=== PATIENT | female | born 1965 | race African-American/Black ===

== ENCOUNTER 2017-07-12 09:06 | Inpatient (IN) | payer OTHER ==
[~2017-07-12] VITALS: Ht 157.5 cm; Wt 131.1 kg
--- NOTE | ~2017-07-12 | HC ---
[facility] [place] [address] CONSULTATION Name: ANGELES VELAZQUEZ Room #: 446-P ADM IN M.R.#: [id number] Admission: 07/12/17 Attend Phys: Benedict Walker MD Discharge: Date of : 61 Report #: [id number] THIS REPORT FOR: //name// CC: Benedict Walker [facility] physician/PCP DATE OF SERVICE: 07/12/2017 REASON FOR CONSULTATION: The patient is a 51-year-old woman with history of gastric sleeve surgery with persistent nausea and vomiting. HISTORY OF PRESENT ILLNESS: This 51-year-old woman has a past medical history of high blood pressure and diabetes. She also has had morbid obesity. She had a lap band placed in 2014. Initial weight was 397 and dropped to 209. However, because of continued weight loss, the lap band was removed and she gained weight back to 312. She also has significant knee problems and states that she needs to have knee replacements. However, they will not do the surgery until she loses weight. In May, she had gastric sleeve surgery at [facility] in [place]. Since that time, she has had problems eating. She reports many times she will have vomiting after eating even liquids. Episodes of nausea and vomiting are sporadic, but generally she vomits nearly on a daily basis. She lost 35 pounds since May. She presented to the Emergency Room at [facility] and was found to be significantly hypokalemic and admitted for further evaluation and treatment. She also reports she has had longstanding reflux disease and had reflux symptoms prior to her bariatric surgeries. She had taken Nexium in the past, but her Medicaid would not cover the Nexium, so recently she has been using ranitidine. She did not have problems with dysphagia. She has not had hematemesis. Also, she reports that nonsteroidals have never helped her joint complaints, so she does not use those medications. Rather, she takes Percocet and generally takes 3 or 4 per day. She also has had problems with constipation and reports she will go days without a stool and then she may have some liquidy stools. She reports she had a colonoscopy at [facility] about a year ago for screening purposes and reports that study was negative. Also, she has not had any rectal bleeding. PAST MEDICAL HISTORY: She has had asthma, diabetes, high blood pressure, degenerative joint disease, COPD. PAST SURGICAL HISTORY: Previous lap band, followed by sleeve surgery in 05/2017; previous hysterectomy; cholecystectomy and appendectomy. She also had a lipoma removed. [address] [address] CONSULTATION Name: ANGELES VELAZQUEZ Room #: 446-P [facility] IN M.R.#: [id number] Admission: 07/12/17 Attend Phys: Benedict Walker MD Discharge: Date of : 61 Report #: [id number] ALLERGIES: ASPIRIN, IBUPROFEN, LISINOPRIL and pork. MEDICATIONS: Usual home medicines, albuterol, metformin, hydrochlorothiazide, Percocet and Lasix. FAMILY HISTORY: Notable for high blood pressure. Grandmother of colon cancer. Grandfather of lung cancer. SOCIAL HISTORY: Lives with her son. 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 She denies use of alcohol. She had smoked in the past, but has quit. REVIEW OF SYSTEMS: GENERAL: A 35-pound weight loss following surgery. No fevers, chills. CENTRAL NERVOUS SYSTEM: No focal weakness, numbness, loss of consciousness, seizures or strokes. ENT: No change in vision or hearing or sores in the mouth. PULMONARY: Chronic obstructive pulmonary disease, smoked in the past, but not recently. No cough or pneumonia. CARDIOVASCULAR: No chest pain, chest tightness or palpitations. GASTROINTESTINAL: Nausea and vomiting, constipation. Negative colonoscopy a year ago. GENITOURINARY: Recent urinary tract infection. GYNECOLOGIC: Previous hysterectomy. No breast problems. MUSCULOSKELETAL: Degenerative joint disease primarily knees. ENDOCRINE: She has diabetes, not aware of thyroid problems. SKIN: Without rashes. PSYCHIATRIC: No depression, anxiety or bipolar illness. HEMATOLOGIC: No bleeding, bruising or malignancies. PHYSICAL EXAMINATION: GENERAL: The patient is a morbidly obese woman in no acute distress. She frequently belches. VITAL SIGNS: Blood pressure 155/101, pulse of 82. HEENT: Anicteric. Pupils equal and round. Oropharynx clear. NECK: Supple. CHEST: Clear. HEART: Regular rate and rhythm, normal S1, S2. ABDOMEN: Morbidly obese. I cannot appreciate any organomegaly or masses due to the size of the abdomen. Her abdomen is soft and nontender. She has normal bowel sounds. RECTAL: Not done. EXTREMITIES: Without cyanosis, clubbing, edema. NEUROLOGIC: Oriented to person, place and time. Moves all 4 extremities well. LABORATORY DATA: White count of 4.8, hemoglobin 11.8, platelet count of [facility] [address] [place] [address] CONSULTATION Name: ANGELES VELAZQUEZ Room #: 446-P [facility] IN M.R.#: [id number] Admission: 07/12/17 Attend Phys: Benedict Walker MD Discharge: Date of : 61 Report #: [id number] 225,000. Sodium 145, potassium 2.9, chloride 107, carbon dioxide 31, BUN 11, creatinine 0.6. Liver function studies normal. Troponin normal. BNP of 84. Albumin slightly decreased at 2.9. Lipase is 75. Portable chest x-ray, no acute changes. ASSESSMENT: 1. Persistent nausea and vomiting following gastric sleeve surgery. 2. Daily use of narcotics for degenerative joint disease. 3. Morbid obesity with recent gastric sleeve surgery. 4. Diabetes, non-insulin dependent. 5. Asthma. 6. Chronic obstructive pulmonary disease. 7. Gastroesophageal reflux disease, chronic. 8. Hypokalemia. PLAN: 1. Recommend discontinuing narcotics, which are likely contributing to her symptoms. 2. Upper endoscopy planned tomorrow for further evaluation of her symptoms. 3. Treatment for gastroesophageal reflux disease, which may help. 4. If symptoms persist, may benefit from agent such as a transdermal scopolamine patch. <ELECTRONICALLY SIGNED> By: Yannick Perez MD 07/13/17 1631 1254 0032 Yannick Perez MD /nt
--- NOTE | ~2017-07-12 | EKG ---
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
--- NOTE | ~2017-07-12 | H ---
[facility] [place] [address] HISTORY AND PHYSICAL Name: ANGELES VELAZQUEZ Room #: 446-P ADM IN M.R.#: [id number] Admission: 07/12/17 Attend Phys: Benedict Walker MD Discharge: Date of : 61 Report #: [id number] THIS REPORT FOR: //name// CC: Benedict Walker [facility] physician/PCP DATE OF SERVICE: 07/12/2017 REASON FOR ADMISSION: Persistent nausea and vomiting. HISTORY OF PRESENT ILLNESS: A 51-year-old with past medical history of hypertension, borderline diabetes mellitus. The patient had a laparoscopic banding back in 2014. This had resulted in significant weight loss after which the patient had the band removed. She continues to have issues with her knee degenerative joint disease and for her to go through the knee surgery, they told her that she has to have a gastric sleeve surgery, which was done in 05/2017 in [place] by physician shai Sanchez. She followed the post-sleeve surgery instructions including liquid diet and advancement accordingly. However, she continued to have major issues with nausea, vomiting, issues with diarrhea and not being able to take her medications. She is supposed to be taking hydrochlorothiazide, metformin; however, because of her persistent nausea and vomiting, she was unable to do so. Due to the lack of good p.o. intake, she developed hypokalemia with no symptoms. She presented for further evaluation and management and was found to have a potassium of 2.9. She denies any chest pain. No fever or chills. She was told that she might be having urinary tract infections when she visited with [facility]'s facility ER, was given a script; however, this was not filled. She used to follow with a primary care physician in [facility]. She stopped seeing them and recently had been seeing somebody at [facility]; however, due to the noncompliance, she has not seen anyone lately. She denies any abdominal pain. She reported to no syncope. No dizziness. No lethargy. ALLERGIES: ASPIRIN, IBUPROFEN, LISINOPRIL. PAST MEDICAL AND SURGICAL HISTORY: 1. Asthma. 2. Diabetes mellitus. 3. Hypertension. 4. Status post hysterectomy. 5. Gastric sleeve surgery in 05/2017. 6. Gastric banding surgery with removal in 2014. 7. Hysterectomy. 8. Gallbladder surgery. 9. Appendectomy MEDICATIONS: [address] [address] HISTORY AND PHYSICAL Name: ANGELES VELAZQUEZ Room #: 446-P [facility] IN .R.#: [id number] Admission: 07/12/17 Attend Phys: Benedict Walker MD Discharge: Date of : 61 Report #: [id number] 1. Albuterol. 2. Metformin. 3. Hydrochlorothiazide; however, she has not been taking any. SOCIAL HISTORY: She lives with her son. 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 No drug or alcohol abuse. FAMILY HISTORY: Significant for hypertension. REVIEW OF SYSTEMS: GENERAL: Occasional weakness. CARDIOVASCULAR: Occasional chest pains, nonspecific. PULMONARY: No cough or hemoptysis. No wheezes. GASTROINTESTINAL: As per the history of present illness. GENITOURINARY: Dark urine, but no burning or stinging. MUSCULOSKELETAL: Bilateral knees pain. SKIN: No rash or ulcerations. NEUROLOGIC: Weakness. PHYSICAL EXAMINATION: GENERAL: Alert, oriented. VITAL SIGNS: Blood pressure is mildly elevated at 160/100. HEAD AND NECK: No jugular venous distention. CHEST: Clear to auscultation bilaterally. CARDIOVASCULAR: Regular with no rub. ABDOMEN: Soft, nontender with scars from her previous surgeries. LOWER EXTREMITIES: No edema. LABORATORY VALUES: Reviewed. Albumin low at 2.9. Potassium low at 2.9. UA was just trace protein and no ketones. Hemoglobin 11.8. Mildly elevated eosinophils noted on her CBC. Chest x-ray and KUB with no acute abnormality. ASSESSMENT, IMPRESSION AND PLAN: 1. Hypokalemia. 2. Persistent nausea and vomiting post-sleeve surgery. 3. Hypertension. 4. Diabetes mellitus. 5. Lack of compliance. 6. Admission. 7. Electrolyte replacement protocol. 8. Gastrointestinal evaluation. 9. P.r.n. nausea and vomiting medications. 10. Discontinue IV fluid. 11. Once able to take p.o., would resume her blood pressure and blood sugar medications. 12. I see no reason for any CT scanning at this point; however, we will take [address] [address] HISTORY AND PHYSICAL Name: ANGELES VELAZQUEZ Room #: 446-P [facility] IN Chasidy.Ernestina#: [id number] Admission: 07/12/17 Attend Phys: Benedict Walker MD Discharge: Date of : 61 Report #: [id number] that as our account. 13. I will decide about obtaining surgical input regarding her gastric sleeve surgery if needed. <ELECTRONICALLY SIGNED> By: Benedict Walker MD 07/13/17 0850 1105 1131 Benedict Walker MD /nt
--- NOTE | ~2017-07-12 | P ---
[facility] [place] [address] PROCEDURE REPORT Name: ANGELES VELAZQUEZ Room #: 446-P ADM IN M.R.#: [id number] Admission: 07/12/17 Attend Phys: Benedict Walker MD Discharge: Date of : 61 Report #: [id number] THIS REPORT FOR: //name// CC: Benedict Walker [facility] physician/PCP BRIEF HISTORY: The patient is a 51-year-old woman who underwent recent gastric sleeve surgery with persistent nausea and vomiting. She also has a history of diabetes. She does use some narcotics. PREOPERATIVE DIAGNOSES: Nausea and vomiting following gastric sleeve. POSTOPERATIVE DIAGNOSES: 1. Moderate erosive gastritis, distal esophagus. 2. Small hiatus hernia. 3. Diffuse gastritis. 4. Surgical changes in stomach consistent with a gastric sleeve surgery. MEDICATIONS: Deep sedation with propofol per anesthesia. SPECIMEN: Biopsies of gastritis. ESTIMATED BLOOD LOSS: 3 mL. PROCEDURE: EGD with biopsy. FINDINGS: Prior to propofol sedation, the procedure of upper endoscopy discussed with the patient as well as potential risks, benefits, and complications. She indicates she understands and desires to proceed. With the patient in left lateral decubitus position, the Vinopolisi video endoscope was inserted in the cervical esophagus under direct vision without difficulty. Examination of this organ through its entire length revealed normal mucosa in the distal esophagus. on the distal esophagus, she was found to have evidence of moderately severe erosive esophagitis likely related to her vomiting. No strictures or masses were seen. The scope was advanced and a small to moderate sliding type hiatus hernia was seen. The mucosa in the hernia was inspected and noted to be unremarkable. The scope was advanced into the stomach. There was a bulbous area of the fundus of the stomach. The mucosa was normal. On the distal aspect of this area, there was a narrowing from the gastric sleeve surgery. It narrowed down significantly, but the scope did pass easily through the gastric sleeve portion of the stomach. It is also noted that there was an angulation in the course of the gastric sleeve segment. The scope was then advanced into the distal stomach, which revealed mild erythema, but no ulcers or erosions. Upon retroflexion, the scope could be seen coming through the gastric sleeve section with healing incisional line. The gastric sleeve was fairly tight around the scope, but again the scope did pass. The pylorus was [facility] [address] [place] [address] PROCEDURE REPORT Name: ANGELES VELAZQUEZ Room #: 446-P [facility] IN M.R.#: [id number] Admission: 07/12/17 Attend Phys: Benedict Walker MD Discharge: Date of : 61 Report #: [id number] unremarkable. The duodenal bulb was noted to be unremarkable. The postbulbar duodenal sweep was inspected and noted to be unremarkable. At that point, the scope was slowly withdrawn and careful circumferential views were obtained. Biopsies were obtained of the gastritis. The patient tolerated the procedure well. DISPOSITION: The patient with recent gastric sleeve surgery with persistent nausea and vomiting. The segment of the body of the stomach where the gastric sleeve was completed is narrowed as expected. However, the scope does pass easily through the area. I do not see any ulcers or obstructing lesions. She does have esophagitis, likely secondary to vomiting. At this point in time, we will place her on metoclopramide on a short-term basis. Also, switch her from a H2 yadira to pantoprazole due to her esophagitis. Ideally, discontinuation of narcotics would be helpful with regards to her symptoms. Also suggest multiple small meals a day. If symptoms persist, barium upper GI series may be helpful. Surgical consultation may be helpful as well if symptoms persist. <ELECTRONICALLY SIGNED> By: Yannick Perez MD 07/13/17 1631 0957 1142 Yannick Perez MD /nt
--- NOTE | ~2017-07-12 | S ---
[facility] [place] [address] SURGICAL PATH RPT PROCEDURE Name: PILI VARGAS Room #: 446-P ADM IN M.R.#: [id number] Admission: 07/12/17 Date of : 61 Discharge: Report #: [id number] Path Case #: [id number] PATHOLOGY REPORT COLLECTION DATE: 07/13/2017 RECEIVED DATE: 07/13/2017 SUBMITTING PHYS: Dr. Yannick Perez OTHER PHYS: Dr. Benedict Walker SPECIMEN(S) RECEIVED: A.Bx of antrum and gastric body * * * * * * * * * * * * FINAL DIAGNOSIS: Gastric mucosa, antrum and gastric body rule out H. pylori, endoscopic biopsy: - Mild reactive gastropathy. - Negative for intestinal metaplasia or atrophy. - Negative for Helicobacter pylori. COMMENT: Well-controlled Helicobacter pylori immunohistochemical stain performed on block A1-negative. (IUV:mgr; 07/14/2017) PATHOLOGIST: Cathie Moreau M.D. REPORT ELECTRONICALLY SIGNED BY: Cathie Moreau M.D. DATE/TIME: 07/14/2017 17:23 * * * * * * * * * * * * GROSS PATHOLOGY: Received in formalin labeled "Pili Vargas, BX of antrum and gastric body, rule out H. pylori ," are 4 segments of gross soft tissue measuring 0.9 x 0.6 x 0.3 cm in aggregate dimensions and ranging from 0.3 to 0.4 cm in maximum dimension. The specimen is submitted entirely in cassette A1. (TSD; 07/13/2017) CLINICAL HISTORY: Pre-OP DX: Vomiting Post-OP DX: Gastritis, hiatal hernia, surgical change in gastric sleeve INITIAL CPT CODE(S): A; 82939, [address] [facility] [place] [address] SURGICAL PATH RPT PROCEDURE Name: MARCUSPILI Room #: 446-P ADM IN M.R.#: [id number] Admission: 07/12/17 Date of : 61 Discharge: Report #: [id number] Path Case #: [id number] Professional services performed by [facility] [address], [place] [address] Technical services performed by [facility] at [address] [place] [address], [place] [address]. [facility] [address] [place] [address] PHONE: [phone] DIRECTOR: Segundo Otero M.D. * * * END OF REPORT * * *
[2017-07-12 09:06] VITALS: BP 149/105
[~2017-07-12 09:06] MED LIST: PERCOCET 10-321 EACH PO; TRAMADOL 50 MG50 MG PO; VENTOLIN HFA 1818 GM INH
[2017-07-12 09:33] LABS: ABSOLUTE NEUTROPHILS 2.4 thou/uL (1.4-8.2); BASOPHILS 0.7 % (0.0-2.0); EOSINOPHILS 3.7 % (0.0-3.0); HEMATOCRIT 36.3 % (37.0-47.0); HEMOGLOBIN 11.8 gm/dL (12.0-15.0); MCH 27.1 pg (26.0-34.0); MCHC 32.6 g/dL (28.0-37.0); MCV 83.4 fL (80.0-100.0); PLATELET COUNT 225 thou/uL (150-400); POLYS 50.6 % (36.0-66.0); RBC 4.36 mil/uL (4.20-5.00); RDW 15.1 % (10.5-14.5); WBC 4.8 thou/uL (4.0-11.0)
[2017-07-12 09:43] LABS: ANION GAP 7 mmol/L (7-16); BUN 11 mg/dL (7-18); CALCIUM 8.7 mg/dL (8.5-10.1); CHLORIDE 107 mmol/L (98-107); CO2 31 mmol/L (21-32); CREATININE 0.6 mg/dL (0.6-1.0); GLUCOSE 99 mg/dL (74-106); SODIUM 145 mmol/L (136-145)
[2017-07-12 09:48] LABS: POTASSIUM 2.9 mmol/L (3.5-5.1)
[2017-07-12 09:52] LABS: ALBUMIN 2.9 g/dL (3.4-5.0); LIPASE 75 U/L (73-393); SGOT 22 U/L (15-37); SGPT 34 U/L (30-65); TOTAL BILIRUBIN 0.6 mg/dL (<0.1-1.0); TOTAL PROTEIN 6.4 g/dL (6.4-8.2); TROPONIN-I < 0.04 ng/mL (<0.06)
[2017-07-12 10:15] LABS: URINE BLOOD NEGATIVE (Negative); URINE CLARITY CLEAR; URINE COLOR YELLOW; URINE GLUCOSE-RANDOM* NEGATIVE (Negative); URINE KETONES NEGATIVE (Negative); URINE LEUKOCYTES NEGATIVE (Negative); URINE NITRITE NEGATIVE (Negative); URINE PROTEIN (DIPSTICK) TRACE (Negative); URINE SPECIFIC GRAVITY 1.025 (1.005-1.035)
[2017-07-12 10:21] LABS: ICTOTEST (BILI CONFIRMATORY) Negative (Negative); URINE BILIRUBIN NEGATIVE (Negative)
[2017-07-12 11:19] VITALS: BP 155/101
[2017-07-12 13:00] VITALS: BP 155/99
[2017-07-12 16:45] VITALS: BP 151/100
[2017-07-12 21:35] VITALS: BP 143/80
[2017-07-13 05:37] VITALS: BP 129/86
[2017-07-13 06:09] LABS: HEMATOCRIT 33.5 % (37.0-47.0); MCH 27.4 pg (26.0-34.0); MCHC 32.8 g/dL (28.0-37.0); MCV 83.4 fL (80.0-100.0); RBC 4.01 mil/uL (4.20-5.00); WBC 4.4 thou/uL (4.0-11.0)
[2017-07-13 06:26] LABS: ALBUMIN 2.5 g/dL (3.4-5.0); CALCIUM 8.1 mg/dL (8.5-10.1); CREATININE 0.6 mg/dL (0.6-1.0); MAGNESIUM 1.6 mg/dL (1.8-2.4); TOTAL BILIRUBIN 0.5 mg/dL (<0.1-1.0); TOTAL PROTEIN 5.8 g/dL (6.4-8.2)
[2017-07-13 08:17] VITALS: BP 141/95
[2017-07-13 14:54] LABS: URINE BLOOD NEGATIVE (Negative); URINE COLOR YELLOW; URINE GLUCOSE-RANDOM* NEGATIVE (Negative); URINE KETONES NEGATIVE (Negative); URINE LEUKOCYTES-REFLEX NEGATIVE (Negative); URINE NITRITE-REFLEX NEGATIVE (Negative); URINE PROTEIN (DIPSTICK) NEGATIVE (Negative); URINE SPECIFIC GRAVITY 1.025 (1.005-1.035)
[2017-07-13 14:55] LABS: URINE BILIRUBIN NEGATIVE (Negative); URINE CLARITY HAZY
[2017-07-13] MEDS ORDERED: LASIX 20 MG TAB20 MG PO (15:04)
[2017-07-13] MEDS ORDERED: ZANTAC 150MG T150 MG PO (15:04)
[2017-07-13 16:16] LABS: MAGNESIUM 2.3 mg/dL (1.8-2.4); POTASSIUM 3.5 mmol/L (3.5-5.1)
[2017-07-13 16:20] VITALS: BP 148/98
[2017-07-13 19:47] VITALS: BP 147/100
[2017-07-14 03:56] VITALS: BP 128/80
[2017-07-14 05:36] LABS: HEMATOCRIT 33.8 % (37.0-47.0); HEMOGLOBIN 11.2 gm/dL (12.0-15.0); MCH 27.8 pg (26.0-34.0); MCV 84.1 fL (80.0-100.0); RBC 4.02 mil/uL (4.20-5.00); WBC 4.2 thou/uL (4.0-11.0)
[2017-07-14 05:49] LABS: CALCIUM 8.1 mg/dL (8.5-10.1); CREATININE 0.6 mg/dL (0.6-1.0); MAGNESIUM 1.6 mg/dL (1.8-2.4); POTASSIUM 3.2 mmol/L (3.5-5.1)
[2017-07-14 08:00] VITALS: BP 139/92
[2017-07-14 16:00] VITALS: BP 125/84
[2017-07-14 20:33] LABS: MAGNESIUM 1.9 mg/dL (1.8-2.4); POTASSIUM 3.6 mmol/L (3.5-5.1)
[2017-07-14 21:08] VITALS: BP 138/92
[2017-07-15 04:51] VITALS: BP 144/87
[2017-07-15 05:30] LABS: ABSOLUTE NEUTROPHILS 2.6 thou/uL (1.4-8.2); BASOPHILS 0.4 % (0.0-2.0); EOSINOPHILS 2.8 % (0.0-3.0); HEMATOCRIT 34.6 % (37.0-47.0); HEMOGLOBIN 11.6 gm/dL (12.0-15.0); LYMPHOCYTES 33.4 % (24.0-44.0); MCH 27.7 pg (26.0-34.0); MCHC 33.5 g/dL (28.0-37.0); MCV 82.8 fL (80.0-100.0); MONOCYTES 8.9 % (1.0-8.0); PLATELET COUNT 225 thou/uL (150-400); POLYS 54.5 % (36.0-66.0); RBC 4.18 mil/uL (4.20-5.00); WBC 4.8 thou/uL (4.0-11.0)
[2017-07-15 05:53] LABS: CALCIUM 8.5 mg/dL (8.5-10.1); CREATININE 0.8 mg/dL (0.6-1.0); POTASSIUM 3.4 mmol/L (3.5-5.1)
[2017-07-15 08:00] VITALS: BP 120/80
[2017-07-15] MEDS ORDERED: PERCOCET 10-321 EACH PO (08:16)
[2017-07-15] MEDS ORDERED: POTASSIUM20 PO (08:17)
[2017-07-15] MEDS ORDERED: ZOFRAN ODT4 M1 PO (08:20)
[2017-07-15] MEDS ORDERED: PROTONIX 20 MG20 M1 PO (08:20)
[2017-07-15 10:49] VITALS: BP 120/80
[2018-01-04] MEDS ORDERED: ZANTAC 150MG T150 MG PO (06:03)
[2018-01-04] MEDS ORDERED: PERCOCET 10-321 EACH PO (08:11)
== END 2017-07-15 11:20 | disposition home or self-care (01) | DRG 381 ==
LOC: ER 09:06 → EROBS 10:36 → 4S 11:20 → ENTRNSPT 07-15 10:58 → EDTRNSPTSTS 07-15 11:00 → 4S 07-15 11:20
PROVIDERS: Family Medicine; Hospitalist; Internal Medicine; Nurse Practitioner Family; Specialist
PROC: 0DB68ZX Excision of Stomach, Via Natural or Artificial Opening Endoscopic, Diagnostic (ICD-10-PCS; principal; 2017-07-13)
DX: K22.10 Ulcer of esophagus without bleeding (principal); Z68.43 Body mass index [BMI] 50.0-59.9, adult; K29.70 Gastritis, unspecified, without bleeding; Z90.710 Acquired absence of both cervix and uterus; I10 Essential (primary) hypertension; E11.9 Type 2 diabetes mellitus without complications; J45.909 Unspecified asthma, uncomplicated; I16.0 Hypertensive urgency; E87.6 Hypokalemia; M19.90 Unspecified osteoarthritis, unspecified site; J44.9 Chronic obstructive pulmonary disease, unspecified; E66.01 Morbid (severe) obesity due to excess calories; K21.9 Gastro-esophageal reflux disease without esophagitis; K44.9 Diaphragmatic hernia without obstruction or gangrene; E83.42 Hypomagnesemia; K59.00 Constipation, unspecified; Z79.899 Other long term (current) drug therapy; Z98.84 Bariatric surgery status; Z88.6 Allergy status to analgesic agent; Z90.49 Acquired absence of other specified parts of digestive tract; Z88.8 Allergy status to other drugs, medicaments and biological substances; Z82.49 Family history of ischemic heart disease and other diseases of the circulatory system; Z83.3 Family history of diabetes mellitus
CPT/HCPCS: 10195; 62110; 62900; 70005

== ENCOUNTER 2017-07-20 15:42 | Emergency (ER) | payer OTHER ==
[~2017-07-20] VITALS: Ht 157.5 cm; Wt 122.5 kg
[~2017-07-20 15:42] MED LIST changes: +LASIX 20 MG TAB20 MG PO; +POTASSIUM20 PO; +PROTONIX 20 MG20 M1 PO; +ZANTAC 150MG T150 MG PO; +ZOFRAN ODT4 M1 PO
[2017-07-20 16:06] LABS: ABSOLUTE NEUTROPHILS 3.5 thou/uL (1.4-8.2); BASOPHILS 1.1 % (0.0-2.0); EOSINOPHILS 1.6 % (0.0-3.0); HEMATOCRIT 37.8 % (37.0-47.0); HEMOGLOBIN 12.7 gm/dL (12.0-15.0); LYMPHOCYTES 35.3 % (24.0-44.0); MCH 27.7 pg (26.0-34.0); MCHC 33.6 g/dL (28.0-37.0); MCV 82.5 fL (80.0-100.0); MONOCYTES 8.6 % (1.0-8.0); PLATELET COUNT 272 thou/uL (150-400); POLYS 53.4 % (36.0-66.0); RBC 4.59 mil/uL (4.20-5.00); RDW 14.8 % (10.5-14.5); WBC 6.5 thou/uL (4.0-11.0)
[2017-07-20 16:15] LABS: CREATININE 0.8 mg/dL (0.6-1.0); POTASSIUM 3.6 mmol/L (3.5-5.1)
[2017-07-20 16:21] LABS: ALBUMIN 3.4 g/dL (3.4-5.0); TOTAL BILIRUBIN 0.6 mg/dL (<0.1-1.0); TOTAL PROTEIN 7.4 g/dL (6.4-8.2)
[2017-07-20 17:48] LABS: URINE BILIRUBIN NEGATIVE (Negative); URINE BLOOD 1+ (Negative); URINE CLARITY CLEAR; URINE COLOR YELLOW; URINE GLUCOSE-RANDOM* NEGATIVE (Negative); URINE KETONES NEGATIVE (Negative); URINE LEUKOCYTES NEGATIVE (Negative); URINE NITRITE NEGATIVE (Negative); URINE PROTEIN (DIPSTICK) NEGATIVE (Negative); URINE SPECIFIC GRAVITY <= 1.005 (1.005-1.035); URINE UROBILINOGEN 0.2 E.U./dl (0.2-1.0)
[2017-07-20 18:02] LABS: BACTERIA 1-9 Few /HPF (None Seen); CASTS None Seen /LPF (None Seen); CRYSTALS None Seen /LPF (None Seen); SQUAMOUS 4-10 Moderate /LPF (0-3); URINE RBC 0-2 Rare /HPF (0-2); URINE WBC None Seen /HPF (0-5)
[2017-07-20] MEDS ORDERED: REGLAN 10 MG TA10 MG PO (18:53)
[2017-07-20] MEDS ORDERED: ONDANSETRON HCL4 M2 PO (18:53)
[2017-07-20 19:11] VITALS: BP 116/60
[2018-01-04] MEDS ORDERED: ZANTAC 150MG T150 MG PO (06:03)
[2018-01-04] MEDS ORDERED: PERCOCET 10-321 EACH PO (08:11)
== END 2017-07-20 19:12 | disposition home or self-care (01) ==
LOC: ER 15:42
PROVIDERS: Physician Assistant
DX: R10.84 Generalized abdominal pain (principal); R11.2 Nausea with vomiting, unspecified; I10 Essential (primary) hypertension; E11.9 Type 2 diabetes mellitus without complications; J45.909 Unspecified asthma, uncomplicated; Z90.710 Acquired absence of both cervix and uterus; Z90.49 Acquired absence of other specified parts of digestive tract; Z88.6 Allergy status to analgesic agent; Z91.018 Allergy to other foods

== ENCOUNTER 2017-08-23 23:09 | Inpatient (IN) | payer OTHER ==
[~2017-08-23] VITALS: Ht 157.5 cm; Wt 122.5 kg
--- NOTE | ~2017-08-23 | EKG ---
[place] [address] [place] [facility] [place] [address] ELECTROCARDIOGRAM REPORT Name: ANGELES VELAZQUEZ Room #: 428-P ADM IN M.R.#: [id number] Admission: 08/24/17 Attend Phys: Eusebio Maxwell DO Discharge: Date of : 61 Report #: [id number] THIS REPORT FOR: //name// [facility] ED Test Date: 2017-08-23 Test Time: 23:52:20 Pat Name: ANGELES VELAZQUEZ Department: Room: 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 : 1965 Requested By: Arthur Peralta Order Number: [id number] MD: Nelson Rose Measurements Intervals [place] Rate: 88 P: 65 [place]: 192 QRS: 9 QRSD: 108 T: 48 QT: 424 QTc: 513 Interpretive Statements Sinus rhythm Probable left atrial enlargement Prolonged QT interval Compared to ECG 07/12/2017 09:29:17 No significant change was found Electronically Signed On 08-24-2017 8:08:29 STOREROOM CLERK by Nelson Rose [email or web address] <ELECTRONICALLY SIGNED> By: Nelson Rose MD, [facility] 08/24/17 0808 51 51 Nelson Rose MD, [facility] /EPI
[2017-08-23 23:09] VITALS: BP 109/81
[~2017-08-23 23:09] MED LIST changes: +ONDANSETRON HCL4 M2 PO; +REGLAN 10 MG TA10 MG PO
[2017-08-24] VITALS (7 sets, daily range): BP systolic 108–145; BP diastolic 71–92
[2017-08-24 01:10] LABS: HEMATOCRIT 39.2 % (37.0-47.0); HEMOGLOBIN 12.8 gm/dL (12.0-15.0); MCH 27.3 pg (26.0-34.0); MCHC 32.7 g/dL (28.0-37.0); MCV 83.4 fL (80.0-100.0); RBC 4.69 mil/uL (4.20-5.00); RDW 15.2 % (10.5-14.5); WBC 6.5 thou/uL (4.0-11.0)
[2017-08-24 01:20] LABS: CREATININE 1.4 mg/dL (0.6-1.0); POTASSIUM 3.4 mmol/L (3.5-5.1)
[2017-08-24 01:25] LABS: ALBUMIN 3.6 g/dL (3.4-5.0); TOTAL BILIRUBIN 0.7 mg/dL (<0.1-1.0)
[2017-08-25 05:20] VITALS: BP 123/70
[2017-08-25 05:23] LABS: ABSOLUTE NEUTROPHILS 1.4 thou/uL (1.4-8.2); BASOPHILS 0.5 % (0.0-2.0); EOSINOPHILS 5.6 % (0.0-3.0); HEMATOCRIT 33.5 % (37.0-47.0); HEMOGLOBIN 11.2 gm/dL (12.0-15.0); LYMPHOCYTES 42.4 % (24.0-44.0); MCHC 33.5 g/dL (28.0-37.0); MCV 83.7 fL (80.0-100.0); MONOCYTES 8.9 % (1.0-8.0); PLATELET COUNT 212 thou/uL (150-400); POLYS 42.6 % (36.0-66.0); RDW 14.6 % (10.5-14.5); WBC 3.4 thou/uL (4.0-11.0)
[2017-08-25 05:32] LABS: CALCIUM 8.1 mg/dL (8.5-10.1); CREATININE 0.9 mg/dL (0.6-1.0); POTASSIUM 3.1 mmol/L (3.5-5.1)
[2017-08-25 07:20] VITALS: BP 129/76
[2017-08-25] MEDS ORDERED: OXYCONTIN10 M1 PO (09:08)
[2017-08-25] MEDS ORDERED: ZANTAC 150MG T150 MG PO (09:09)
[2017-08-25] MEDS ORDERED: PERCOCET 10-321 EACH PO ×2 (09:09→09:11)
[2017-08-25] MEDS ORDERED: CYCLOBENZAPRINE5 MG PO (09:10)
[2017-08-25 16:00] VITALS: BP 130/87
[2017-08-25 20:00] VITALS: BP 138/83
[2017-08-26 03:44] VITALS: BP 136/85
[2017-08-26 08:18] VITALS: BP 123/98
[2017-08-26 10:14] VITALS: BP 123/98
[2017-08-26 11:57] VITALS: BP 123/98
[2017-08-26 12:13] VITALS: BP 123/98
[2018-01-04] MEDS ORDERED: ZANTAC 150MG T150 MG PO (06:03)
[2018-01-04] MEDS ORDERED: PERCOCET 10-321 EACH PO (08:11)
== END 2017-08-26 14:08 | disposition home health service (06) | DRG 551 ==
LOC: ER 23:09 → EROBS 08-24 01:27 → 4E 08-24 02:10
PROVIDERS: Emergency Medicine; Family Medicine
DX: S32.10XA Unspecified fracture of sacrum, initial encounter for closed fracture (principal); N17.0 Acute kidney failure with tubular necrosis; I10 Essential (primary) hypertension; M19.90 Unspecified osteoarthritis, unspecified site; E11.9 Type 2 diabetes mellitus without complications; K21.9 Gastro-esophageal reflux disease without esophagitis; W19.XXXA Unspecified fall, initial encounter; E66.9 Obesity, unspecified; J45.909 Unspecified asthma, uncomplicated; Z88.8 Allergy status to other drugs, medicaments and biological substances; Z90.49 Acquired absence of other specified parts of digestive tract; Z90.710 Acquired absence of both cervix and uterus; Z68.42 Body mass index [BMI] 45.0-49.9, adult; Z90.89 Acquired absence of other organs; Z87.891 Personal history of nicotine dependence; Y93.89 Activity, other specified; Y92.89 Other specified places as the place of occurrence of the external cause; Y99.8 Other external cause status
CPT/HCPCS: 10084

== ENCOUNTER 2017-09-20 09:48 | Emergency (ER) | payer OTHER ==
[~2017-09-20] VITALS: Ht 157.5 cm; Wt 116.6 kg
[~2017-09-20 09:48] MED LIST changes: +CYCLOBENZAPRINE5 MG PO; +OXYCONTIN10 M1 PO
[2017-09-20] MEDS ORDERED: HYDROCODONE-AP1 EAC6 PO (12:07)
[2017-09-20 13:02] VITALS: BP 162/97
[2018-01-04] MEDS ORDERED: ZANTAC 150MG T150 MG PO (06:03)
[2018-01-04] MEDS ORDERED: PERCOCET 10-321 EACH PO (08:11)
== END 2017-09-20 13:03 | disposition home or self-care (01) ==
LOC: ER 09:48
DX: S32.19XA Other fracture of sacrum, initial encounter for closed fracture (principal); S32.2XXA Fracture of coccyx, initial encounter for closed fracture; I10 Essential (primary) hypertension; K21.9 Gastro-esophageal reflux disease without esophagitis; J45.909 Unspecified asthma, uncomplicated; Z88.6 Allergy status to analgesic agent; Z88.8 Allergy status to other drugs, medicaments and biological substances; Z90.49 Acquired absence of other specified parts of digestive tract; Z90.710 Acquired absence of both cervix and uterus; W06.XXXA Fall from bed, initial encounter; Y93.89 Activity, other specified; Y92.89 Other specified places as the place of occurrence of the external cause; Y99.8 Other external cause status

== ENCOUNTER 2018-01-08 05:57 | Emergency (ER) | payer OTHER ==
[~2018-01-08] VITALS: Ht 157.5 cm; Wt 106.6 kg
--- NOTE | ~2018-01-08 | EKG ---
[facility] [place] [place] [address] ELECTROCARDIOGRAM REPORT Name: ANGELES VELAZQUEZ Room #: REG GARRY De Jesus#: [id number] Admission: 01/08/18 Attend Phys: Discharge: Date of : 61 Report #: [id number] THIS REPORT FOR: //name// 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 : 1965 Requested By: Zelda Lynn Order Number: [id number] MD: Nelson Rose Measurements Intervals [place] Rate: 84 P: 53 [place]: 181 QRS: -8 QRSD: 80 T: 27 QT: 423 QTc: 501 Interpretive Statements Sinus rhythm Left atrial enlargement RSR' in V1 or V2, right VCD Prolonged QT interval Baseline wander in lead(s) V6 Compared to ECG 08/23/2017 23:52:20 No significant change was found Electronically Signed On 01-08-2018 8:18:05 CDT by Nelson Rose [email or web address] <ELECTRONICALLY SIGNED> By: Nelson Rose MD, [facility] 01/08/18 0818 0559 0559 Nelson Rose MD, [facility] /EPI
[~2018-01-08 05:57] MED LIST changes: +HYDROCODONE-AP1 EAC6 PO
[2018-01-08] MEDS ORDERED: ADVAIR 500-501 EACH INH (06:08)
[2018-01-08 06:28] LABS: ABSOLUTE NEUTROPHILS 3.4 thou/uL (1.4-8.2); BASOPHILS 0.4 % (0.0-2.0); EOSINOPHILS 9.3 % (0.0-3.0); HEMATOCRIT 31.7 % (37.0-47.0); HEMOGLOBIN 10.5 gm/dL (12.0-15.0); LYMPHOCYTES 26.1 % (24.0-44.0); MCH 27.5 pg (26.0-34.0); MCHC 33.2 g/dL (28.0-37.0); MCV 82.8 fL (80.0-100.0); MONOCYTES 8.8 % (1.0-8.0); PLATELET COUNT 197 thou/uL (150-400); POLYS 55.4 % (36.0-66.0); RBC 3.82 mil/uL (4.20-5.00); WBC 6.2 thou/uL (4.0-11.0)
[2018-01-08 06:35] LABS: ANION GAP 6 mmol/L (7-16); BUN 15 mg/dL (7-18); CALCIUM 8.4 mg/dL (8.5-10.1); CHLORIDE 107 mmol/L (98-107); CO2 29 mmol/L (21-32); CREATININE 0.8 mg/dL (0.6-1.0); GLUCOSE 100 mg/dL (74-106); POTASSIUM 3.6 mmol/L (3.5-5.1); SODIUM 142 mmol/L (136-145)
[2018-01-08 06:43] LABS: TROPONIN-I <0.06 ng/mL (<0.06)
[2018-01-08] MEDS ORDERED: DOXYCYCLINE 10100 MG PO (08:36)
[2018-01-08] MEDS ORDERED: GUAIFEN-CODEINE10 ML PO (09:19)
[2018-01-08] MEDS ORDERED: HYDROCODONE-AP1 EAC6 PO (19:39)
[2018-01-08] MEDS ORDERED: PROMETHAZINE-D118 ML PO (20:11)
[2018-01-08] MEDS ORDERED: PROMETHAZINE V118 M1 PO (20:11)
== END 2018-01-08 09:27 | disposition home or self-care (01) ==
LOC: ER 05:57
PROVIDERS: Emergency Medicine
DX: J18.9 Pneumonia, unspecified organism (principal); G89.18 Other acute postprocedural pain; M25.561 Pain in right knee; I10 Essential (primary) hypertension; J45.909 Unspecified asthma, uncomplicated; E11.9 Type 2 diabetes mellitus without complications; K21.9 Gastro-esophageal reflux disease without esophagitis; Z90.49 Acquired absence of other specified parts of digestive tract; Z90.710 Acquired absence of both cervix and uterus; Z88.6 Allergy status to analgesic agent; Z88.8 Allergy status to other drugs, medicaments and biological substances

== ENCOUNTER 2018-01-08 18:15 | Emergency (ER) | payer OTHER ==
[~2018-01-08] VITALS: Ht 157.5 cm; Wt 104.3 kg
--- NOTE | ~2018-01-08 | EKG ---
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
[~2018-01-08 18:15] MED LIST changes: +ADVAIR 500-501 EACH INH; +DOXYCYCLINE 10100 MG PO; +GUAIFEN-CODEINE10 ML PO
[2018-01-08 19:06] LABS: ABSOLUTE NEUTROPHILS 2.5 thou/uL (1.4-8.2); BASOPHILS 0.4 % (0.0-2.0); EOSINOPHILS 10.8 % (0.0-3.0); HEMATOCRIT 32.8 % (37.0-47.0); HEMOGLOBIN 10.8 gm/dL (12.0-15.0); LYMPHOCYTES 37.2 % (24.0-44.0); MCH 27.1 pg (26.0-34.0); MCHC 32.8 g/dL (28.0-37.0); MCV 82.6 fL (80.0-100.0); MONOCYTES 8.6 % (1.0-8.0); PLATELET COUNT 199 thou/uL (150-400); RBC 3.97 mil/uL (4.20-5.00); RDW 16.1 % (10.5-14.5); WBC 5.7 thou/uL (4.0-11.0)
[2018-01-08 19:18] LABS: ANION GAP 3 mmol/L (7-16); BUN 17 mg/dL (7-18); CALCIUM 8.5 mg/dL (8.5-10.1); CHLORIDE 107 mmol/L (98-107); CO2 31 mmol/L (21-32); GLUCOSE 97 mg/dL (74-106); POTASSIUM 3.3 mmol/L (3.5-5.1); SODIUM 141 mmol/L (136-145)
[2018-01-08 19:28] LABS: TROPONIN-I <0.06 ng/mL (<0.06)
[2018-01-08] MEDS ORDERED: HYDROCODONE-AP1 EAC6 PO (19:39)
[2018-01-08] MEDS ORDERED: PROMETHAZINE-D118 ML PO (20:11)
[2018-01-08] MEDS ORDERED: PROMETHAZINE V118 M1 PO (20:11)
== END 2018-01-08 20:15 | disposition home or self-care (01) ==
LOC: ER 18:15
PROVIDERS: Physician Assistant
DX: J18.9 Pneumonia, unspecified organism (principal); I10 Essential (primary) hypertension; E11.9 Type 2 diabetes mellitus without complications; J45.909 Unspecified asthma, uncomplicated; K21.9 Gastro-esophageal reflux disease without esophagitis; Z90.49 Acquired absence of other specified parts of digestive tract; Z90.710 Acquired absence of both cervix and uterus; Z88.6 Allergy status to analgesic agent; Z88.8 Allergy status to other drugs, medicaments and biological substances